=== PATIENT | female | born 1970 | race Two or more races ===

== ENCOUNTER → 2025-04-20 | Outpatient (CLI) | payer MEDICAID, SELFPAY ==
--- NOTE | 2025-04-20 13:15 | XR_ITS ---
Examination: Screening digital mammography, bilateral Computer aided detection 3-D breast Tomosynthesis, bilateral Date and time of exam: April 20, 2025 1353 hours, compared to mammograms dating to September 30, 2014 Indication: Screening Technique: Nonmagnified MLO, CC views of the breasts to been obtained, reconstructed from 3-D Tomosynthesis images. R2 computer aided detection program utilized for evaluation of suspicious masses and/or abnormal calcifications. 3-D Tomosynthesis images obtained. Findings: The breasts are heterogeneously dense, which may obscure small masses 10 mm focal asymmetry indistinct margins upper outer right breast posterior depth 18mm focal asymmetry retroareolar region left breast indistinct margins Impression: Category 0: Incomplete: Need additional imaging evaluation Recommend follow-up spot tomographic views 10 mm focal asymmetry upper outer right breast posterior depth Recommend follow-up spot tomographic views retroareolar region left breast to assess 18 mm focal asymmetry Recommend bilateral breast sonography to complete the workup
== END | disposition home or self-care (01) ==
PROVIDERS: PCP Physician Assistant; Referring Provider Physician Assistant; Visit Provider Physician Assistant
DX: Z12.31 Encounter for screening mammogram for malignant neoplasm of breast (principal); N64.89 Other specified disorders of breast; R92.8 Other abnormal and inconclusive findings on diagnostic imaging of breast
CPT/HCPCS: 77063; 77067

== ENCOUNTER → 2025-07-14 | Outpatient (CLI) | payer MEDICAID, SELFPAY ==
--- NOTE | 2025-07-14 09:30 | XR_ITS ---
Examination: Breast ultrasound complete, bilateral Date and time of exam: July 14, 2025, 0943 hours INDICATIONS: Mammogram 04/20/2000 2510 mm focal asymmetry upper outer right breast 18 mm focal asymmetry retroareolar region left breast Technique: Real-time grayscale ultrasonographic imaging bilateral breasts, including all 4 quadrants as well as nipple retroareolar and axillary regions. Findings: Sonographic images right breast No cystic or solid mass 19 mm axillary lymph node Sonographic images left breast No cystic or solid mass 15 mm axillary lymph node 9 mm cystic mass with internal echoes in the left breast IMPRESSION: BI-RADS Category 3: Probably benign findings Recommend 6-month left breast axillary sonography follow-up to document stability of cystic nodule in the left axilla 9 x 4 x 9 mm
--- NOTE | 2025-07-14 10:30 | XR_ITS ---
Examination: Diagnostic digital mammography, bilateral Computer aided detection 3-D breast Tomosynthesis, bilateral Date and time of exam: July 14, 2025, 1038 hours INDICATIONS: Mammogram 04/20/2025 10 mm focal asymmetry upper outer right breast posterior depth, 18 mm focal asymmetry retroareolar region left breast Technique: Nonmagnified MLO, CC views of the breasts to been obtained, reconstructed from 3-D Tomosynthesis images. R2 computer aided detection program utilized for evaluation of suspicious masses and/or abnormal calcifications. 3-D Tomosynthesis images obtained. Findings: The breasts are heterogeneously dense, which may obscure small masses No suspicious masses are confirmed on the spot compression views Impression: BI-RADS Category 2: Benign findings Return to yearly follow-up mammography.
== END | disposition home or self-care (01) ==
PROVIDERS: PCP Physician Assistant; Referring Provider Internal Medicine; Visit Provider Internal Medicine
DX: R92.323 Mammographic fibroglandular density, bilateral breasts (principal); N63.32 Unspecified lump in axillary tail of the left breast
CPT/HCPCS: 76641; 77062; 77066; G0279